=== PATIENT | male | born 1985 | race Caucasian/White ===

== ENCOUNTER 2016-12-09 10:25 | Emergency (ER) | payer SELFPAY ==
[2016-12-09] MEDS ORDERED: ONDANSETRON HCL INJ/PF 4 MG/2 ML SDV IV ONE (10:28)
[2016-12-09] MEDS ORDERED: KETOROLAC TROMETHAMINE INJ/PF 30 MG/1 ML SDV IV ONE (10:28)
--- NOTE | 2016-12-09 10:29 | ER Document Report ---
ED Medical Screen (RME) - General Stated Complaint: STOAMCH PAIN Mode of Arrival: Ambulatory Information source: Patient Notes: Patient complaining of left lower quadrant abdominal pain that started just prior to arrival. Patient restless, diaphoretic complains of nausea. hx: None I have greeted and performed a rapid initial assessment of this patient. A comprehensive ED assessment and evaluation of the patient, analysis of test results and completion of the medical decision making process will be conducted by additional ED providers. - Related Data Allergies/Adverse Reactions: No Known Allergies Allergy (Verified 12/09/16 10:28) Physical Exam - Abdominal Tenderness: Tender - Left lower quadrant
[2016-12-09 11:08] LABS: ABSOLUTE BASOPHILS # (AUTO) 0.1 10^3/uL (0.0-0.2); ABSOLUTE EOSINOPHILS # (AUTO) 0.4 10^3/uL (0.0-0.6); ABSOLUTE LYMPHOCYTES (AUTO) 2.3 10^3/uL (0.5-4.7); ABSOLUTE MONOCYTES (AUTO) 0.6 10^3/uL (0.1-1.4); BASOPHILS % (AUTO) 0.9 % (0-2); EOSINOPHILS % (AUTO) 5.9 % (0-6); HEMATOCRIT 45.7 % (37.9-51.0); HEMOGLOBIN 15.3 g/dL (13.5-17.0); HGB HCT DIFFERENCE 0.2; LYMPHOCYTES % (AUTO) 31.6 % (13-45); MEAN CORPUSCULAR HEMOGLOBIN 28.4 pg (27.0-33.4); MEAN CORPUSCULAR HGB CONC 33.5 g/dL (32.0-36.0); MEAN CORPUSCULAR VOLUME 85 fl (80-97); MONOCYTES % (AUTO) 7.6 % (3-13); RED BLOOD COUNT 5.38 10^6/uL (4.35-5.55); RED CELL DISTRIBUTION WIDTH 13.9 % (11.5-14.0); WHITE BLOOD COUNT 7.4 10^3/uL (4.0-10.5)
[2016-12-09] MEDS ORDERED: MORPHINE SULFATE 10 MG/ML INJ IV ONE (11:47)
--- NOTE | 2016-12-09 12:02 | ER Document Report ---
ED GI/ - General Chief Complaint: Flank Pain Stated Complaint: STOAMCH PAIN Mode of Arrival: Ambulatory Information source: Patient Notes: 31-year-old male with past medical history as recorded including kidney stones 2 were presents today with the onset this morning of some left lower quadrant "pressure", that is been intermittent, radiating to his left flank, with vomiting. He denies any pain or hesitancy with urination. He denies any fevers or diarrhea. He states the pain is much improved at this time after Toradol injection. Patient has never required stent placement or lithotripsy in the past. Patient does not have a current urologist. TRAVEL OUTSIDE OF THE [place] IN LAST 30 DAYS: No - HPI Patient complains to provider of: Other - See above Onset: Other - See above Timing/Duration: Sudden - See above Quality of pain: Other - See above Severity at maximum: Severe Severity in ED: Mild Pain Level: 1 Location: LLQ Sexual history: Active Associated symptoms: Other - See above Exacerbated by: Denies Relieved by: Denies Similar symptoms previously: Yes Recently seen / treated by doctor: No - Related Data Allergies/Adverse Reactions: No Known Allergies Allergy (Verified 12/09/16 10:28) Past Medical History - General Information source: Patient - Social History Smoking Status: Unknown if Ever Smoked Chew tobacco use (# tins/day): Yes Frequency of alcohol use: None Drug Abuse: None Family History: Reviewed & Not Pertinent Patient has suicidal ideation: No Patient has homicidal ideation: No Pulmonary Medical History: Reports: Hx Pneumonia - x7 Renal/ Medical History: Reports: Hx Kidney Stones. Denies: Hx Peritoneal Dialysis Past Surgical History: Reports: Hx Orthopedic Surgery Review of Systems - Review of Systems Constitutional: denies: Fever Cardiovascular: denies: Chest pain Respiratory: denies: Short of breath Gastrointestinal: denies: Vomiting Genitourinary: Flank pain. denies: Dysuria, Discharge, Frequency, Incontinence , Urgency, Retention Musculoskeletal: denies: Leg swelling Skin: Other - no hives. denies: Rash Neurological/Psychological: Other - no slurred speech -: Yes All other systems reviewed and negative Physical Exam - Vital signs Vitals: Resp 22 H 12/09/16 10:45 Notes: Reviewed vital signs and nursing note as charted by RN. CONSTITUTIONAL: Alert and oriented and responds appropriately to questions. Patient is currently, my initial examination of the medication is been provided. CARD: Regular rate and rhythm; no murmurs, no clicks, no rubs, no gallops; symmetric distal pulses RESP: Normal chest excursion without splinting or tachypnea; breath sounds clear and equal bilaterally; no wheezes, no rhonchi, no rales ABD/GI: Normal bowel sounds; non-distended; soft, very minimally tender to the left lower quadrant without rebound or guarding. BACK: The back appears normal and is non-tender to palpation, mild left-sided CVA tenderness without swelling or erythema. EXT: Normal ROM in all joints; non-tender to palpation; no cyanosis, no effusions, no edema SKIN: Normal color for age and race; warm; dry; good turgor; capillary refill < 2 seconds; no acute lesions noted NEURO: Moves all extremities equally; Motor and sensory function intact PSYCH: The patient's mood and manner are appropriate. Grooming and personal hygiene are appropriate. Course - Re-evaluation Re-evalutation: 12/09/16 12:01 Given the history and physical examination we will perform a urinalysis, CBC, provide pain medications, and obtain a CT scan renal colic protocol to evaluate the size and location of the kidney stone given that the patient has no current urologist. 12/09/16 13:[address] as recorded. Patient's pain is much improved. Normal white count normal glucose despite positive yeast in the urine. I am unsure what to attribute this to. Patient has no penile lesions consistent with a yeast infection. Diflucan has been given. Patient will be discharged home with strict return precautions and follow-up with urology. - Vital Signs Vital signs: Temp Pulse Resp BP Pulse Ox 71 18 132/89 H 97 12/09/16 10:50 12/09/16 11:01 12/09/16 11:01 12/09/16 11:01 - Laboratory Result Diagrams: 12/09/16 10:40 12/09/16 11:30 Laboratory results interpreted by me: 12/09/16 12:00 Urine Protein 100 H Urine Blood LARGE H Urine Urobilinogen 2.0 H Discharge - Discharge Clinical Impression: Kidney stone on left side Condition: Good Disposition: HOME, SELF-CARE Additional Instructions: Come back immediately with any increased pain, fevers or vomiting, inability or difficulty urinating, or any other acute problems. Prescriptions: Ondansetron [Zofran Odt 4 mg Tablet] 1 tab PO Q6H #15 tab.rapdis Oxycodone HCl/Acetaminophen [Percocet 5-325 mg Tablet] 1 - 2 tab PO ASDIR PRN # 15 tablet PRN Reason: Referrals: AL RANDOLPH MD [RK HERNANDEZ] - Follow up as needed
[2016-12-09 12:20] LABS: APPEARANCE,URINE CLOUDY; BILIRUBIN,URINE NEGATIVE (NEGATIVE); GLUCOSE, URINE NEGATIVE (NEGATIVE); KETONES,URINE NEGATIVE (NEGATIVE); LEUKOCYTE ESTERASE,URINE NEGATIVE (NEGATIVE); NITRITE,URINE NEGATIVE (NEGATIVE); PROTEIN,URINE 100 mg/dL (NEGATIVE); URINE SPECIFIC GRAVITY 1.021
[2016-12-09 12:24] LABS: ALANINE AMINOTRANSFERASE 43 U/L (21-72); ALBUMIN 4.8 g/dL (3.5-5.0); ALKALINE PHOSPHATASE 65 U/L (38-126); ANION GAP 9 (5-19); ASPARTATE AMINO TRANSFERASE 30 U/L (17-59); BILIRUBIN,TOTAL 0.6 mg/dL (0.2-1.3); BLOOD UREA NITROGEN 15 mg/dL (7-20); CALCIUM 9.6 mg/dL (8.4-10.2); CARBON DIOXIDE 29 mmol/L (22-30); CHLORIDE 104 mmol/L (98-107); CREATININE RESULT 1.08 mg/dL (0.52-1.25); GLUCOSE 91 mg/dL (75-110); LIPASE 58.5 U/L (23-300); POTASSIUM 4.5 mmol/L (3.6-5.0); SODIUM 141.9 mmol/L (137-145); TOTAL PROTEIN 7.5 g/dL (6.3-8.2)
[2016-12-09] MEDS ORDERED: FLUCONAZOLE 100 MG TABLET PO ONE (12:59)
[2016-12-09 13:15] VITALS: BP 128/71
== END 2016-12-09 13:28 | disposition home or self-care (01) ==
LOC: ER 10:25
DX: N20.0 Calculus of kidney (principal); R10.32 Left lower quadrant pain; Z87.442 Personal history of urinary calculi
CPT/HCPCS: 99284; 36415; 83690; 85025; 80053; 81001; 76380; J1885; J2405

== ENCOUNTER 2017-05-20 13:09 | Emergency (ER) | payer OTHER ==
[2017-05-20] MEDS ORDERED: CEPHALEXIN 500 MG CAPSULE PO ONE (14:39)
--- NOTE | 2017-05-20 14:50 | ER Document Report ---
HPI - HPI Pain Level: 1 Context: puncture wound yesterday tetanus UTD today at [facility] Exacerbated by: Movement Relieved by: Remaining still - CARDIOVASCULAR Cardiovascular: DENIES: Chest pain - DERM Skin Color: Normal Past Medical History - Social History Smoking Status: Never Smoker Chew tobacco use (# tins/day): Yes Frequency of alcohol use: Rare Drug Abuse: None Family History: Reviewed & Not Pertinent Pulmonary Medical History: Reports: Hx Pneumonia - x7 Renal/ Medical History: Reports: Hx Kidney Stones. Denies: Hx Peritoneal Dialysis Past Surgical History: Reports: Hx Orthopedic Surgery Vertical Provider Document - CONSTITUTIONAL Agree With Documented VS: Yes Exam Limitations: No Limitations General Appearance: WD/WN, No Apparent Distress - INFECTION CONTROL TRAVEL OUTSIDE OF THE [place] IN LAST 30 DAYS: No - RESPIRATORY O2 Sat by Pulse Oximetry: 97 - CARDIOVASCULAR Pulses: Normal: Radial - cap refill < 3 seconds - MUSCULOSKELETAL/EXTREMETIES Musculoskeletal/Extremeties: MAEW, FROM, Non-Tender, No Edema. negative: Eccymosis - DERM Integumentary: Warm, Dry, No Rash, Laceration - 2 puncture wounds on the left hand with subq involvement, no bleeding, Course - Re-evaluation Re-evalutation: 05/20/17 21:17 Is a 31-year-old male who presents with puncture wound of the left hand no evidence retained foreign body., Full range of motion, neurovascular intact. Patient wound was irrigated with Betadine and closed with Steri-Strips. Patient initiated on antibiotics and [facility] Patient to follow-up with [facility] as needed. - Vital Signs Vital signs: Temp Pulse Resp BP Pulse Ox 98.9 F 92 20 152/91 H 97 05/20/17 13:14 05/20/17 13:14 05/20/17 13:14 05/20/17 13:14 05/20/17 13:14 - Diagnostic Test Radiology reviewed: Image reviewed, Reports reviewed Discharge - Discharge Clinical Impression: Puncture wound Condition: Good Disposition: HOME, SELF-CARE Instructions: Puncture Wound ([facility]) Additional Instructions: [facility] if sensation in your finger does not improve Prescriptions: Cephalexin Monohydrate [Keflex 500 mg Capsule] 500 mg PO QID #20 capsule Referrals: EPIFANIO ARRIAZA DO [ACTIVE STAFF] - Follow up in 1 week
--- NOTE | 2017-05-20 14:51 | RADIOLOGY REPORT (SQ) ---
EXAM DESCRIPTION: HAND LEFT 3 VIEWS COMPLETED DATE/TIME: 05/20/2017 2:32 pm REASON FOR STUDY: puncture wound COMPARISON: None. EXAM PARAMETERS: NUMBER OF VIEWS: Three views. TECHNIQUE: AP, lateral and oblique radiographic images acquired of the left hand. LIMITATIONS: None. FINDINGS: MINERALIZATION: Normal. BONES: No acute fracture or dislocation. No worrisome bone lesions. JOINTS: No effusions. SOFT TISSUES: No soft tissue swelling. No foreign body. OTHER: No other significant finding. IMPRESSION: NEGATIVE STUDY OF THE LEFT HAND. NO RADIOGRAPHIC EVIDENCE OF ACUTE INJURY. TECHNICAL DOCUMENTATION: JOB ID: [id number] [employer]- All Rights Reserved
[2017-05-20 15:19] VITALS: BP 127/84
== END 2017-05-20 15:19 | disposition home or self-care (01) ==
LOC: ER 13:09
DX: S61.432A Puncture wound without foreign body of left hand, initial encounter (principal); W26.9XXA Contact with unspecified sharp object(s), initial encounter; Z87.442 Personal history of urinary calculi
CPT/HCPCS: 99283